=== PATIENT | male | born 1970 | race Two or more races ===

== ENCOUNTER 2018-09-15 09:05 | Emergency (ER) | payer OTHER ==
[~2018-09-15] VITALS: Ht 177.8 cm; Wt 75.0 kg
[2018-09-15 09:31] VITALS: BP 148/79
== END 2018-09-15 10:47 | disposition home or self-care (01) ==
LOC: ER 09:05
DX: M67.432 Ganglion, left wrist (principal); M25.532 Pain in left wrist
CPT/HCPCS: 99281